=== PATIENT | male | born 1945 | race Caucasian/White ===

== ENCOUNTER 2017-05-06 12:42 | Day surgery (SDC) | payer MEDICARE, BC ==
[2017-05-05 14:32] VITALS: BMI 28.0
[2017-05-06 13:09] LABS: Hematocrit 43.2 % (42.0-52.0); Red Blood Cell (RBC) Count 4.41 mill/uL (4.70-6.10); White Blood Cell (WBC) Count 7.2 thou/uL (4.8-10.8)
[2017-05-06 13:16] LABS: PTT 37.2 SEC (22.9-36.1); Prothrombin Time 19.7 SEC (12.0-14.7)
[2017-05-06 14:35] LABS: BF Reference Range Comment Note:
[2017-05-06 14:41] VITALS: TEMP 97.9
--- OUTSIDE RECORDS SUMMARY | 2017-05-06 15:02 | XMS | Clinical Summary ---
:1945 Author Organization [facility] Address [address] [place] [address] Phone Care Team Providers Name Role Phone [facility] Primary Care Provider tel Allergies No Known Allergies Current Medications Prescription Sig. Disp. Refills Start Date End Date Status metoprolol succinate XL Take 50 mg by Active (TOPROL-XL) 50 mg 24 hr mouth daily. tablet MULTIVITAMIN ORAL Take 1 tablet Active by mouth daily. LACTOBACILLUS Take 1 tablet Active ACIDOPHILUS (PROBIOTIC by mouth daily. ORAL) Called "Colon Help" GLUCOSAMINE HCL/CHONDR Take 1 tablet Active VALERA A NA (OSTEO BI-FLEX by mouth 2 ORAL) (two) times a day. glipiZIDE (GLUCOTROL) 5 Take 5 mg by Active MG tablet mouth 2 (two) times a day before meals. ascorbic acid, vitamin Take 500 mg by Active C, (VITAMIN C) 500 MG mouth daily. tablet spironolactone Take 1 tablet 60 tablet 5 03/08/2017 09/04/2017 Active (ALDACTONE) 100 MG (100 mg total) tablet by mouth 2 (two) times a day for 180 days. Active Problems Problem Noted Date Dysplastic nodule of liver 07/22/2016 HCC (hepatocellular carcinoma) 07/22/2016 Portal hypertension 07/22/2016 Secondary esophageal varices without bleeding 07/22/2016 Type 2 diabetes mellitus without complication 07/22/2016 Essential hypertension 07/22/2016 Pure hypercholesterolemia 07/22/2016 Cirrhosis 07/13/2016 Abnormal findings-gastrointestinal tract 07/13/2016 Encounters Date Type Specialty Care Team Description 04/19/2017 Telephone Transplant Lizette Adam MA Scheduling 04/07/2017 Orders Only Transplant [facility] HCC (hepatocellular carcinoma) (Primary Dx) 03/31/2017 Telephone Transplant [facility] call re abd pain/swelling 03/29/2017 Telephone Transplant [facility] Mills returned pt. call 03/25/2017 Telephone Transplant Josefina Durán MA Pain in right groin area 03/19/2017 Documentation Transplant Amanda Osullivan RN Applied for HCC exception extension, approved, MELD=6, upgra 03/11/2017 Telephone Transplant [facility] e-mail to Mr. Newby 03/09/2017 Refill Transplant Corbin Sainz Med Refill MD Julio C 03/08/2017 Hospital Encounter Transplant Dayron Núñez III, MD 03/08/2017 Refill Transplant Corbin Sianz Refill MD Julio C 03/02/2017 Hospital Encounter Radiology Dayron Núñez III, HCC ( hepatocellular MD carcinoma) 03/02/2017 Hospital Encounter Radiology Dayron Núñez III, HCC ( hepatocellular MD carcinoma) 03/02/2017 Hospital Encounter Transplant Dayron Núñez III, HCC ( hepatocellular MD carcinoma) 01/15/2017 Procedure Pass Radiology from Last 3 Months Social History Tobacco Use Types Packs/Day Years Used Date Former Smoker Cigarettes 3 07/14/1963 - 1977 Smokeless Tobacco: Never Used Sex Assigned at Date Recorded Not on file Last Filed Vital Signs Vital Sign Reading Time Taken Blood Pressure 141/65 03/08/2017 11:19 AM CDT Pulse 78 03/08/2017 11:19 AM CDT Temperature 36 C (96.8 F) 03/08/2017 11:19 AM CDT Respiratory Rate 16 03/08/2017 11:19 AM CDT Oxygen Saturation 95% 03/08/2017 11:19 AM CDT Inhaled Oxygen Concentration - - Weight 89.3 kg (196 lb 14.4 oz) 03/08/2017 11:19 AM CDT Height 170.2 cm (5' 7") 03/08/2017 11:19 AM CDT Body Mass Index 30.84 03/08/2017 11:19 AM CDT Plan of Treatment Date Type Specialty Care Team Description 04/07/2017 Procedure Pass Transplant 05/11/2017 Appointment Radiology Dayron Núñez III, MD [address] [facility] [address] [place] [address] 05/11/2017 Appointment Radiology Dayron Núñez III, MD [address] [facility] [address] [place] [address] [phone] 05/11/2017 Appointment Transplant 05/24/2017 Appointment Transplant Health Maintenance Due Date Last Done Comments FOOT EXAM 1955 OPHTHALMOLOGY EXAM 1955 COLONOSCOPY 1995 ZOSTER VACCINE 2005 PNEUMOCOCCAL POLYSACCHARIDE VACCINE AGE 65 AND OVER 2010 PNEUMOCOCCAL-13 2010 INFLUENZA VACCINE 03/09/2017 Implants Implanted Type Area Data Security Coordinator Device Expiration Model / Identifier Date Serial / Lot Device Vasclr Clsr Baln Cath 10ml Lkng Syr 5fr Oro Mynxgrip - [id number] Cardiovascular N/A: ACCESS CLOSURE 10/06/2018 [id number] / Implanted:12/08/2016 (Quantity not on file) Implants N/A INC / [id number] Device Vasclr Clsr Baln Cath 10ml Lkng Syr 5fr Oro Mynxgrip - [id number] Cardiovascular N/A: ACCESS CLOSURE 10/06/2018 [id number] / Implanted:12/23/2016 (Quantity not on file) Implants N/A INC / [id number] Device Vasclr Clsr Baln Cath 10ml Lkng Syr 5fr Oro Mynxgrip - [id number] Cardiovascular N/A: ACCESS CLOSURE 12/06/2018 [id number] / Implanted:01/28/2017 (Quantity not on file) Implants N/A INC / [id number] Catheter Angio Packager Head Ii 5fr 0.038in 65cm - [id number] Surgical N/A: [facility] [id number] / Implanted:12/08/2016 (Quantity not on file) Implants; N/A INTERVENTION / Expanders; VASCULAR FRANCIS Extenders; Surgical Wires Catheter Angio Packager Head Ii 5fr 65cm Flush Hf Pig - [id number] Surgical N/A: [facility] [id number] / Implanted:12/08/2016 (Quantity not on file) Implants; N/A INTERVENTION / Expanders; VASCULAR FRANCIS Extenders; Surgical Wires Catheter Angio Packager Head Ii 5fr 0.038in 65cm - [id number] Surgical N/A: [facility] [id number] / Implanted:01/28/2017 (Quantity not on file) Implants; N/A INTERVENTION / Expanders; VASCULAR FRANCIS Extenders; Surgical Wires Results Estimated GFR (03/02/2017 1:10 PM) Component Value Ref Range GFR Non Af Amer 83 mL/min/1.73 m2 GFR Af Amer >90 mL/min/1.73 m2 Comment: Chronic kidney disease: <60 mL/min/1.73m2 Kidney failure: <15 mL/min/1.73m2 The estimated GFR is calculated from the IDMS-traceable Modification of Diet in Renal Disease Equation. The accuracy of the calculation is poor when the creatinine is normal. Calculated values >90 mL/min/1.73m2 are not reported. This equation has not been validated in children (<18 years), women, the elderly (>70 years), or ethnic groups other than Caucasians and Americans. Specimen Performing Laboratory Plasma specimen [facility] DEPARTMENT OF PATHOLOGY AND GENOMIC MEDICINE [address] [place] [address] Hepatocellular carcinoma marker panel (03/02/2017 1:10 PM) Component Value Ref Range Alpha fetoprotein total 10 0 - 15 ng/mL Alpha fetoprotein L3 pct 14.8(H) 0.0 - 9.9 % Comment: INTERPRETIVE INFORMATION: Alpha Fetoprotein L3 Percent The uTASWako method is used. Results obtained with different assay methods or kits cannot be used interchangeably. The AFP-L3 Percent assay is intended as a risk assessment for the development of hepatocellular carcinoma in patients with chronic liver diseases. Patients with elevated serum AFP-L3 percent should be more intensely evaluated for evidence of hepatocellular carcinoma since elevated values have been shown to be associated with a seven-fold increase in the risk for developing hepatocellular carcinoma within 21 months. For females, the result is not interpretable as a tumor marker. Rpb-avtmf-uibuzff prothrombin 50.0(H) 0.0 - 7.4 ng/mL Comment: INTERPRETIVE INFORMATION: Ket-jrerf-lotgnld Prothrombin The uTASWako method is used.Results obtained with different assay methods or kits cannot be used interchangeably. The eng-skvru-icqblda prothrombin (DCP) assay is intended as a risk assessment for the development of hepatocellular carcinoma in patients with chronic liver diseases.Elevated DCP values have been shown to be associated with an increased risk for developing hepatocellular carcinoma. Patients with elevated serum DCP should be more intensely evaluated for evidence of hepatocellular carcinoma. Performed by [facility], [address] [place] [id number] [email or web address], Mauro Arriaga MD - Lab. Director Specimen Performing Laboratory Serum [facility] [address] [place] [address] Partial thromboplastin time, activated (03/02/2017 1:10 PM) Component Value Ref Range PTT 35.3 23.0 - 36.0 sec Comment: PTT therapeutic range for unfractionated heparin is 61.0-112.0 seconds which corresponds to Anti-Xa 0.3-0.7 U/ml. Specimen Performing Laboratory Blood [facility] DEPARTMENT OF PATHOLOGY AND GENOMIC MEDICINE [address] [place] [address] Prothrombin time with INR (03/02/2017 1:10 PM) Component Value Ref Range Prothrombin time 16.0(H) 12.0 - 15.0 sec INR 1.3 Comment: The International Normalized Ratio (INR) is a therapeutic monitoring tool for patients who are stable on oral anticoagulant therapy. An INR of 2.0-3.0 is suggested for deep vein thrombosis/pulmonary embolism. Specimen Performing Laboratory Blood [facility] DEPARTMENT OF PATHOLOGY AND GENOMIC MEDICINE [address] [place] [address] CBC with platelet and differential (03/02/2017 1:10 PM) Component Value Ref Range WBC 4.70 4.50 - 11.00 k/uL RBC 4.71 4.40 - 6.00 m/uL HGB 13.9(L) 14.0 - 18.0 g/dL HCT 43.4 41.0 - 51.0 % MCV 92.1 82.0 - 100.0 fL MCH 29.5 27.0 - 34.0 pg MCHC 32.0 31.0 - 37.0 g/dL RDW - SD 56.4(H) 37.0 - 55.0 fL MPV 12.3 8.8 - 13.2 fL Platelet count 75(L) 150 - 400 k/uL Nucleated RBC 0.00 /100 WBC Neutrophils 76.2(H) 39.0 - 69.0 % Lymphocytes 8.3(L) 25.0 - 45.0 % Monocytes 13.2(H) 0.0 - 10.0 % Eosinophils 1.5 0.0 - 5.0 % Basophils 0.4 0.0 - 1.0 % Immature granulocytes 0.4Comment:"Immature granulocytes" 0.0 - 1.0 % (promyelocytes, myelocytes, metamyelocytes) Specimen Performing Laboratory Blood [facility] DEPARTMENT OF PATHOLOGY AND [facility] MEDICINE [address] [place] [address] Hepatic function panel (03/02/2017 1:10 PM) Component Value Ref Range Albumin 2.8(L) 3.5 - 5.0 g/dL Total bilirubin 4.7(H) 0.0 - 1.2 mg/dL Bilirubin direct 2.4(H) 0.0 - 0.3 mg/dL Alkaline phosphatase 252(H) 40 - 129 U/L Protein 7.1 6.3 - 8.3 g/dL Comment: 4.6-7.0 g/dL 1 week 4.4-7.6 g/dL 7 months-1year5.1-7.3 g/dL 1-2 years5.6-7.5 g/dL >3 years6.0-8.0 g/dL 18-150 6.3-8.3 g/dL ALT 83(H) 5 - 50 U/L AST 156(H) 10 - 50 U/L Specimen Performing Laboratory Plasma specimen [facility] DEPARTMENT OF PATHOLOGY AND [address] [address] Basic metabolic panel (03/02/2017 1:10 PM) Component Value Ref Range Sodium 139 135 - 148 mEq/L Potassium 4.1 3.5 - 5.0 mEq/L Chloride 101 98 - 112 mEq/L CO2 25 24 - 31 mEq/L Anion gap 13 7 - 15 mEq/L Comment: Starting from November , anion gap calculation no longer incorporates potassium. Please note the change. BUN 10 8 - 23 mg/dL Creatinine 0.9 0.7 - 1.2 mg/dL Glucose 110(H) 65 - 99 mg/dL Calcium 8.6(L) 8.8 - 10.2 mg/dL Specimen Performing Laboratory Plasma specimen [facility] DEPARTMENT OF PATHOLOGY AND [facility] MEDICINE [address] [place] [address] Chest Wo Contrast (03/02/2017 12:40 PM) Specimen Performing Laboratory [address] [address] Narrative EXAMINATION: CT CHEST WO CONTRAST CLINICAL HISTORY: C22.0 Liver cell carcinoma, Metastatic workup TECHNIQUE: Multiple axial images were obtained from the lung apices to the lung bases without the administration of intravenous contrast.The lack of intravenous contrast reduces the sensitivity of detecting solid organ disease and evaluating vasculature. High-resolution,coronal, and sagittal reformats were obtained.CT imaging was performed with iterative reconstruction technique and/or automated exposure control to reduce radiation dose. COMPARISON: 11/19/2016 IMPRESSION: Heart size is normal. There is coronary artery calcification. The aorta measures within normal limits.The pulmonary artery is within normal limits. There is no enlarged mediastinal lymph node. Mild bilateral bronchiectasis is present. Lucency in the upper lobes are compatible with paraseptal emphysema. Medial right upper lobe atelectasis and/or groundglass opacity is seen. Mild medial rightlower lung groundglass opacity and atelectasis are also seen. Tiny nodule in the lingula is 3 mm. It is unchanged from the prior study. If desired, follow-up study can be performed at 6 months to evaluate for continued stability. Cirrhotic nodular liver is seen.A mass emanating from the lateral right liver is at least 17 mm. Please refer to MRI performed the same day for best assessment. There is ascites. There is moderate splenomegaly. The spleen is 15.8 cm in length. Ascites and splenomegaly are compatible with portal hypertension. Recanalized paraumbilical vein is also compatible with portal hypertension. Suspicious osseous lesion is not seen. Procedure Note Hm Interface, Radiology Results Incoming - 03/02/2017 3:45 PM CDT EXAMINATION: CT CHEST WO CONTRAST CLINICAL HISTORY: C22.0 Liver cell carcinoma, Metastatic workup TECHNIQUE: Multiple axial images were obtained from the lung apices to the lung baseswithout the administration of intravenous contrast.The lack of intravenouscontrast reduces the sensitivity of detecting solid organ disease andevaluating vasculature. High-resolution,coronal, and sagittal reformats were obtained.CT imagingwas performed with iterative reconstruction technique and/or automatedexposure control to reduce radiation dose. COMPARISON: 11/19/2016 IMPRESSION: Heart size is normal. There is coronary artery calcification. The aorta measures within normal limits. The pulmonary artery is withinnormal limits. There is no enlarged mediastinal lymph node. Mild bilateral bronchiectasis is present. Lucency in the upper lobes arecompatible with paraseptal emphysema. Medial right upper lobe atelectasisand/ or groundglass opacity is seen. Mild medial right lower lunggroundglass opacity and atelectasis are also seen. Tiny nodule in the lingula is 3 mm. It is unchanged from the prior study.If desired, follow-up study can be performed at 6 months to evaluate forcontinued stability. Cirrhotic nodular liver is seen. A mass emanatingfrom the lateral right liver is at least 17 mm. Please refer to MRI performed the same day for bestassessment. There is ascites. There is moderate splenomegaly. The spleen is 15.8 cm in length. Ascitesand splenomegaly are compatible with portal hypertension. Recanalizedparaumbilical vein is also compatible with portal hypertension. Suspicious osseous lesion is not seen. MRI Abdomen W Wo Contrast (03/02/2017 11:28 AM) Specimen Performing Laboratory [facility] [address] [place] [address] Narrative EXAMINATION:MRI ABDOMEN W WO CONTRAST CLINICAL HISTORY:C22.0 Liver cell carcinoma, HCC Screen COMPARISON:October 14, 2016 TECHNIQUE: Multiplanar, multisequence MRI of the abdomen with and without intravenous gadolinium. FINDINGS: The liver is cirrhotic. The patient is status post radioembolization of both lobes. Liver parenchymal detail is somewhat limited by motion artifacts, however no definite residual hypervascular lesionis identified. The largest lesion in segment 2 previously seen measuring 2 cm is now barely perceptible and nonhypervascular. No convincing new masses identified. Numerous regenerative and dysplastic small nodules are again demonstrated throughoutthe liver. There is some heterogeneous enhancement noted in the caudate lobe likely reflecting posttreatment change and/or perfusional anomaly. Main portal vein is patent. Spleen is moderately enlarged. There is new moderate ascites. Marked gallbladder distention is similar to prior. No significant biliary dilatation. There are multiple renal cysts. No adrenal mass. No suspicious osseous lesion is seen. IMPRESSION: 1.No definite evidence of active HCC status post radioembolization. Though there is substantial motion artifact limiting exam, there has likely been good response to treatment. Recommend follow-upin 3 months. 2.New moderate ascites. Portal vein grossly patent. [facility]-[id number] Procedure Note Interface, Radiology Results Incoming - 03/02/2017 12:01 PM CDT EXAMINATION: MRI ABDOMEN W WO CONTRAST CLINICAL HISTORY: C22.0 Liver cell carcinoma, HCC Screen COMPARISON: October 14, 2016 TECHNIQUE: Multiplanar, multisequence MRI of the abdomen with and withoutintravenous gadolinium. FINDINGS: The liver is cirrhotic. The patient is status post radioembolization ofboth lobes. Liver parenchymal detail is somewhat limited by motionartifacts, however no definite residual hypervascular lesion isidentified. The largest lesion in segment 2 previously seen measuring 2 cm is now barely perceptible andnonhypervascular. No convincing new masses identified. Numerousregenerative and dysplastic small nodules are again demonstratedthroughout the liver. There is some heterogeneous enhancement noted in the caudate lobe likely reflecting posttreatment change and/ orperfusional anomaly. Main portal vein is patent. Spleen is moderately enlarged. There is newmoderate ascites. Marked gallbladder distention is similar to prior. No significant biliarydilatation. There are multiple renal cysts. No adrenal mass. No suspicious osseous lesion is seen. IMPRESSION: 1. No definite evidence of active HCC status post radioembolization.Though there is substantial motion artifact limiting exam, there haslikely been good response to treatment. Recommend follow-up in 3 months. 2. New moderate ascites. Portal vein grossly patent. [facility]-[id number] from Last 3 Months Insurance Payer Benefit Plan / Group Subscriber ID Type Phone Address MEDICARE MEDICARE PART A AND B [id number] Medicare [place], [place] BCBS BCBS PAR/TRAD PLAN [id number] Indemnity SCOTT NEWBY L Transplant Self 1945 Home: [id number] [address] [phone] [facility] [address] [place] [address]
--- OUTSIDE RECORDS SUMMARY | 2017-05-06 15:22 | XMS | Clinical Summary ---
:1945 Author Organization [facility] Address [address] [place] [address] Phone Care Team Providers Name Role Phone [...] Núñez III, MD 03/08/2017 Refill Transplant Corbin Sainz Refill MD Julio C 03/02/2017 Hospital Encounter [...] 05/11/2017 Appointment Radiology Dayron Núñez III, MD [address] [facility] [address] [place] [address] 05/11/2017 Appointment Radiology Dayron Núñez III, MD [address] [facility] [address] [place] [address] [phone] 05/11/2017 Appointment Transplant 05/24/2017 Appointment Transplant Health Maintenance Due Date Last Done Comments FOOT EXAM 1955 OPHTHALMOLOGY EXAM 1955 COLONOSCOPY 1995 ZOSTER VACCINE 2005 PNEUMOCOCCAL POLYSACCHARIDE VACCINE AGE 65 AND OVER 2010 PNEUMOCOCCAL-13 2010 INFLUENZA VACCINE 03/09/2017 Implants Implanted Type Area Personal Banking Advisor Device Expiration Model / Identifier Date Serial / Lot Device Vasclr Clsr Baln Cath 10ml Lkng Syr 5fr Oro Mynxgrip - [id number] Cardiovascular N/A: ACCESS CLOSURE 10/06/2018 [id number] / Implanted:12/08/2016 (Quantity not on file) Implants N/A INC / [id number] Device Vasclr Clsr Baln Cath 10ml Lkng Syr 5fr Oro Mynxgrip - [id number] Cardiovascular N/A: ACCESS CLOSURE 10/06/2018 [id number] / Implanted:12/23/2016 (Quantity not on file) Implants N/A INC / [id number] Device Vasclr Clsr Baln Cath 10ml Lkng Syr 5fr Oro Mynxgrip - [id number] Cardiovascular N/A: ACCESS CLOSURE 12/06/2018 [id number] / Implanted:01/28/2017 (Quantity not on file) Implants N/A INC / [id number] Catheter Angio Morning [employer] Producer Ii 5fr 0.038in 65cm - [id number] Surgical N/A: [facility] [id number] / Implanted:12/08/2016 (Quantity not on file) Implants; N/A INTERVENTION / Expanders; VASCULAR FRANCIS Extenders; Surgical Wires Catheter Angio Morning [employer] Producer Ii 5fr 65cm Flush Hf Pig - [id number] Surgical N/A: [facility] [id number] / Implanted:12/08/2016 (Quantity not on file) Implants; N/A INTERVENTION / Expanders; VASCULAR FRANCIS Extenders; Surgical Wires Catheter Angio [employer] Producer Ii 5fr 0.038in 65cm - [id number] Surgical N/A: [facility] [id number] / Implanted:01/28/2017 (Quantity not on file) Implants; [...] and Americans. Specimen Performing Laboratory Plasma specimen [facility] DEPARTMENT OF PATHOLOGY AND GENOMIC MEDICINE [address] [place] [address] Hepatocellular carcinoma marker panel (03/02/2017 1:10 PM) [...] is not interpretable as a tumor marker. Qgn-gpdxi-tovpoir prothrombin 50.0(H) 0.0 - 7.4 ng/mL Comment: INTERPRETIVE INFORMATION: Yot-pxcaz-kiygjpp Prothrombin The uTASWako method is used.Results obtained with different assay methods or kits cannot be used interchangeably. The ytw-wnfti-ibgbnuv prothrombin (DCP) assay is intended as a risk assessment for the development of hepatocellular carcinoma in patients with chronic liver diseases.Elevated DCP values have been shown to be associated with an increased risk for developing hepatocellular carcinoma. Patients with elevated serum DCP should be more intensely evaluated for evidence of hepatocellular carcinoma. Performed by [facility], [address] [place] [id number] [email or web address], Mauro Arriaga MD - Lab. Director Specimen Performing Laboratory Serum [facility] [address] [place] [address] Partial thromboplastin time, activated (03/02/2017 1:10 PM) Component Value Ref Range PTT 35.3 23.0 - 36.0 sec Comment: PTT therapeutic range for unfractionated heparin is 61.0-112.0 seconds which corresponds to Anti-Xa 0.3-0.7 U/ml. Specimen Performing Laboratory Blood [facility] DEPARTMENT OF PATHOLOGY AND GENOMIC MEDICINE [address] [place] [address] Prothrombin time with INR (03/02/2017 1:10 PM) Component Value Ref Range Prothrombin time 16.0(H) 12.0 - 15.0 sec INR 1.3 Comment: The International Normalized Ratio (INR) is a therapeutic monitoring tool for patients who are stable on oral anticoagulant therapy. An INR of 2.0-3.0 is suggested for deep vein thrombosis/pulmonary embolism. Specimen Performing Laboratory Blood [facility] DEPARTMENT OF PATHOLOGY AND GENOMIC MEDICINE [address] [place] [address] CBC with platelet and differential (03/02/2017 1:10 [...] (promyelocytes, myelocytes, metamyelocytes) Specimen Performing Laboratory Blood [facility] DEPARTMENT OF PATHOLOGY AND [facility] MEDICINE [address] [place] [address] Hepatic function panel (03/02/2017 1:10 PM) Component [...] 50 U/L Specimen Performing Laboratory Plasma specimen [facility] DEPARTMENT OF PATHOLOGY AND [address] [address] Basic metabolic panel (03/02/2017 1:10 PM) Component [...] 10.2 mg/dL Specimen Performing Laboratory Plasma specimen [facility] DEPARTMENT OF PATHOLOGY AND [facility] MEDICINE [address] [place] [address] Chest Wo Contrast (03/02/2017 12:40 PM) Specimen Performing Laboratory [address] [address] Narrative EXAMINATION: CT CHEST WO CONTRAST CLINICAL [...] Contrast (03/02/2017 11:28 AM) Specimen Performing Laboratory [facility] [address] [place] [address] Narrative EXAMINATION:MRI ABDOMEN W WO CONTRAST CLINICAL [...] 2.New moderate ascites. Portal vein grossly patent. [facility]-[id number] Procedure Note Interface, Radiology Results Incoming - [...] New moderate ascites. Portal vein grossly patent. [facility]-[id number] from Last 3 Months Insurance Payer Benefit Plan / Group Subscriber ID Type Phone Address MEDICARE MEDICARE PART A AND B [id number] Medicare [place], [place] BCBS BCBS PAR/TRAD PLAN [id number] Indemnity SCOTT NEWBY L Transplant Self 1945 Home: [id number] [address] [phone] [facility] [address] [place] [address]
[2017-05-06 15:48] LABS: BF Color Yellow; BF WBC/Nonhematics Ct. - Manua 75 /cumm
[2017-05-06 15:53] LABS: Number Cells Counted-Fluids 100
--- NOTE | 2017-05-07 19:32 | ULT ---
EXAM: ULTRASOUND GUIDED PARACENTESIS 05/07/17 HISTORY: Cirrhosis. COMPARISON: None. FINDINGS: Technically successful ultrasound guided paracentesis. Total of 3500 mL of yellow colored ascites wa s aspirated. TECHNIQUE: Consent obtained for an ultrasound guided paracentesis. Right lower quadrant was deemed appropriate. Skin was prepped and draped in a sterile fashion. 1% lidocaine buffered with sodium bicarbonate was used for local anesthesia. Under ultrasound guidance, A 7 cm 5 [employer] catheter was advanced in to the peritoneal space. Via vacuum bottles, a total of 3500 mL of yellow colored ascites was aspira yokasta. Patient tolerated the procedure well. No immediate or postprocedure complication. IMPRESSION: Technically successful ultrasound guided paracentesis. POS: [facility]
== END 2017-05-06 14:25 | disposition home or self-care (01) ==
LOC: ULT 12:42
PROVIDERS: ATTEND Internal Medicine Gastroenterology
DX: R18.8 Other ascites (principal); K74.60 Unspecified cirrhosis of liver; C22.0 Liver cell carcinoma; D69.6 Thrombocytopenia, unspecified; I10 Essential (primary) hypertension; E11.9 Type 2 diabetes mellitus without complications; Z79.84 Long term (current) use of oral hypoglycemic drugs; Z79.899 Other long term (current) drug therapy; Z87.891 Personal history of nicotine dependence; Z86.010 Personal history of colon polyps
CPT/HCPCS: 36415; 49083; 82042; 85027; 85060; 85610; 85730; 88112; 88305; 89051